=== PATIENT | female | born 1940 | race Caucasian/White ===

== ENCOUNTER 2016-04-16 09:22 | Outpatient (CLI) | payer MEDICARE | END 2016-04-16 09:23 | disposition home or self-care (01) | LOC: NAVSJIPCSP 09:22 | PROVIDERS: ATTEND Internal Medicine | DX: E78.5 Hyperlipidemia, unspecified (principal) | CPT/HCPCS: 36415; 80061 ==

== ENCOUNTER 2016-04-23 12:11 | Outpatient (CLI) | payer MEDICARE | END 2016-04-23 12:12 | disposition home or self-care (01) | LOC: NAVSJIPCSP 12:11 | PROVIDERS: ATTEND Internal Medicine | DX: N39.0 Urinary tract infection, site not specified (principal) | CPT/HCPCS: 87077; 87086; 87186 ==

== ENCOUNTER 2016-05-14 13:31 | Outpatient (CLI) | payer MEDICARE ==
[2016-05-14 14:16] LABS: ALT (SGPT) 31 U/L (0-55); AST (SGOT) 31 U/L (5-34); Alkaline Phosphatase 94 U/L (40-150); Anion Gap 12 mmol/L (10-20); BUN (Urea Nitrogen) 8 mg/dL (9.8-20.1); Bilirubin, Total 0.6 mg/dL (0.2-1.2); Calc. Creatinine Clearance 0 mL/min (70-130); Calcium 9.3 mg/dL (7.8-10.44); Carbon Dioxide 27 mmol/L (23-31); Chloride 104 mmol/L (98-107); Estimated GFR-MDRD 82; Globulin 2.1 g/dL (2.4-3.5); Protein, Total 6.3 g/dL (5.8-8.1)
[2016-05-14 14:19] LABS: #Basophils 0.1 thou/uL (0.0-0.2); #Eosinphils 0.2 thou/uL (0.0-0.7); #Lymphocytes 1.9 thou/uL (1.20-3.40); #Monocytes 0.5 thou/uL (0.11-0.59); #Neutrophils 4.4 thou/uL (1.40-6.50); %Eosinophils 2.3 % (0.0-10.0); %Lymphocytes 27.2 % (21.0-51.0); %Monocytes 7.1 % (0.0-10.0); Hematocrit 40.3 % (36.0-47.0); Mean Platelet Volume 6.4 fL (7.4-10.4); Red Blood Cell (RBC) Count 4.48 mill/uL (4.20-5.40)
== END 2016-05-14 13:32 | disposition home or self-care (01) ==
LOC: NAVSJIPCSP 13:31
PROVIDERS: ATTEND Internal Medicine
DX: R30.0 Dysuria (principal); R53.83 Other fatigue; M25.50 Pain in unspecified joint
CPT/HCPCS: 80053; 82607; 84443; 85025; 85652; 86038; 86430; 87086

== ENCOUNTER 2016-12-11 10:01 | Outpatient (CLI) | payer MEDICARE ==
[2016-12-11 12:06] LABS: Bilirubin Negative (Negative); Blood, Urine Negative (Negative); Clarity Clear (Clear); Glucose, Urine (Dipstick) Negative (Negative); Leukocyte Trace (Negative); Nitrite Negative (Negative); Protein, Urine (Dipstick) Negative (Neg-Trace); Urobilinogen 0.2 mg/dL (0.2-1.0); pH, Urine 6.5 (5.0-9.0)
[2016-12-11 12:36] LABS: Bacteria/HPF Rare-Few HPF (None Seen); RBC/HPF 0-3 HPF (0-3); Squamous Epithelial 0-3 HPF (0-3); WBC/HPF 0-3 HPF (0-3)
== END 2016-12-11 10:02 | disposition home or self-care (01) ==
LOC: NAVSJIPCSP 10:01
PROVIDERS: ATTEND Urology
DX: N39.0 Urinary tract infection, site not specified (principal)
CPT/HCPCS: 81001; 87086